=== PATIENT | female | born 1990 | race Caucasian/White ===

== ENCOUNTER → 2019-01-27 | Outpatient (CLI) | payer OTHER ==
[~2019-01-27] MED LIST: Amoxicillin500 MG PO; Crutch1 EACH MISC; IBUP600 PO; IBUP800 PO; Norco 10-325 T1 EACH PO; Norco 5-325 Ta1 EACH PO
[2019-01-28 07:06] LABS: Candida species (DNA Probe) Negative (NEGATIVE); G. vaginalis (DNA Probe) Negative (NEGATIVE); T. vaginalis (DNA Probe) Negative (NEGATIVE)
[2019-01-30 03:08] LABS: CHLAMYDIA TRACHOMATIS, NAA Negative (Negative); NEISSERIA GONORRHOEAE, NAA Negative (Negative)
== END ==
LOC: LAB EV 12:00 → LAB SHORT 12:00
PROVIDERS: Nurse Practitioner Family
DX: Z01.419 Encounter for gynecological examination (general) (routine) without abnormal findings (principal); N76.0 Acute vaginitis
CPT/HCPCS: 87480; 87491; 87510; 87591; 87660; G0145

== ENCOUNTER 2019-05-11 07:31 | Day surgery (SDC) | payer OTHER ==
[~2019-05-11] VITALS: Ht 162.6 cm; Wt 85.1 kg
[~2019-05-11 07:31] MED LIST changes: +DEPO-PROVE150 MG/1 M IM
--- NOTE | 2019-05-11 08:07 | NUR ---
PT ADMITTED TO [facility]. AGREES WITH PLANNED SURGERY. LUNG SOUNDS CLEAR. URINE HCG DONE, SPECIFC GRAVITY 1.005. SERUM TO BE DRAWN.
--- NOTE | 2019-05-11 08:27 | NUR ---
IV ATTEMPT X2 BY THIS RN TO LFA, UNABLE TO ADVANCE. BLOOD SAMPLE OBTAINED FOR LAB.
--- NOTE | 2019-05-12 10:42 | NUR ---
05/12/19 1042 Lenora Barajas VERIFICATIONS: EDIT CHART.
== END 2019-05-11 11:45 | disposition home or self-care (01) ==
LOC: ORSCMMR 07:31 → ORD 08:30 → ORSCMMR 09:00 → ORD 09:25 → ORSCMMR 11:45
PROVIDERS: Obstetrics & Gynecology
PROC: 0UT74ZZ Resection of Bilateral Fallopian Tubes, Percutaneous Endoscopic Approach (ICD-10-PCS; principal; 2019-05-11 09:00)
DX: Z30.2 Encounter for sterilization (principal); F17.210 Nicotine dependence, cigarettes, uncomplicated
CPT/HCPCS: 84702; 84703; 88302; J0330; J1885; J2250; J2405; J2704; J3010; J7120

== ENCOUNTER 2019-10-30 15:23 | Emergency (ER) | payer OTHER ==
[~2019-10-30] VITALS: Ht 160 cm; Wt 81.7 kg
[2019-10-30] MEDS ORDERED: HYDR1TAB94 PO (18:57)
== END 2019-10-30 19:01 | disposition home or self-care (01) ==
LOC: ER 15:23
DX: R68.84 Jaw pain (principal); F17.200 Nicotine dependence, unspecified, uncomplicated; Z88.5 Allergy status to narcotic agent
CPT/HCPCS: 70486; 99283-25

== ENCOUNTER 2022-02-07 18:06 | Emergency (ER) | payer OTHER ==
[~2022-02-07] VITALS: Ht 165.1 cm; Wt 90.7 kg
[~2022-02-07 18:06] MED LIST changes: +HYDR1TAB94 PO
[2022-02-07 19:08] LABS: Source, Urine Clean Catch
[2022-02-07 19:11] LABS: BASOPHILS ABSOLUTE AUTO 0.09 K/mm3 (0.00-0.23); BASOPHILS PERCENT AUTO 1 % (0-2); EOSINOPHILS ABSOLUTE AUTO 0.15 K/mm3 (0.00-0.68); EOSINOPHILS PERCENT AUTO 1 % (0-6); Hematocrit 40.6 % (33.0-51.0); Hemoglobin 14.1 g/dL (11.5-16.0); IMMATURE GRAN ABSOLUTE AUTO 0.03 K/mm3 (0.00-0.10); IMMATURE GRAN PERCENT AUTO 0 % (0-1); LYMPHOCYTES ABSOLUTE AUTO 2.21 K/mm3 (0.84-5.20); LYMPHOCYTES PERCENT AUTO 21 % (21-46); MONOCYTES ABSOLUTE AUTO 0.97 K/mm3 (0.16-1.47); MONOCYTES PERCENT AUTO 9 % (4-13); Mean Corpuscular HGB Conc 34.7 g/dL (31.5-36.5); Mean Corpuscular Volume 89 fL (80-100); Mean Platelet Volume 10.8 fL (9.1-12.4); NEUTROPHILS ABSOLUTE AUTO 6.94 K/mm3 (1.96-9.15); NEUTROPHILS PERCENT AUTO 67 % (41-73); Platelet Count 282 K/mm3 (150-400); RDW Coefficient Variation 12.9 % (11.7-14.2); RDW Standard Deviation 42.5 fL (35.1-46.3); Red Blood Cell Count 4.55 M/mm3 (3.80-5.20); White Blood Cell Count 10.39 K/mm3 (4.00-11.30)
[2022-02-07 19:14] LABS: Appearance, Urine Clear (Clear); Bilirubin, Urine Neg (Neg); Blood, Urine 1+ (Neg); Glucose Qualitative, Urine Neg (Neg); Ketones, Urine Neg (Neg); Leukocyte Esterase, Urine Neg (Neg); Nitrite, Urine Neg (Neg); Protein, Urine Neg (Neg); Urobilinogen, Urine NORM (Normal); pH, Urine 6.5 (5.0-8.0)
[2022-02-07 19:20] LABS: Color, Urine No Color (P-Yellow)
[2022-02-07 19:22] LABS: Bacteria Rare /hpf; Red Blood Cells, Urine 0-2 /hpf (0-2); Squamous Epithelial Cells Rare /hpf (Few); White Blood Cells, Urine 0-2 /hpf (0-5)
[2022-02-07 19:25] LABS: Influenza A, PCR NEGATIVE (NEGATIVE); Influenza B, PCR NEGATIVE (NEGATIVE); Resp Syncytial Virus, PCR NEGATIVE (NEGATIVE); SARS-Cov-2 (COVID-19) PCR, MMC NEGATIVE (NEGATIVE)
[2022-02-07 19:36] LABS: Albumin, Blood 4.2 g/dL (3.4-5.0); Albumin/Globulin Ratio 1.2 (0.8-1.8); Bilirubin, Total 0.3 mg/dL (0.1-1.0); Bun/Creatinine Ratio 11.7 (12.0-20.0); Calcium, Blood 9.5 mg/dL (8.5-10.1); Creatinine, Blood 0.77 mg/dL (0.40-1.00); Globulin, Blood 3.5 g/dL (2.2-4.0); Potassium, Blood 3.5 mmol/L (3.5-5.5); Total Protein, Blood 7.7 g/dL (6.4-8.2)
== END 2022-02-07 22:03 | disposition home or self-care (01) ==
LOC: ER 18:06
PROVIDERS: Student in an Organized Health Care Education/Training Program
DX: F41.9 Anxiety disorder, unspecified (principal); F43.9 Reaction to severe stress, unspecified; F17.200 Nicotine dependence, unspecified, uncomplicated; Z20.822 Contact with and (suspected) exposure to COVID-19; Z88.5 Allergy status to narcotic agent
CPT/HCPCS: 0241U; 36415; 71045; 80053; 81001; 85025; 93005; 93010; 99284-25